=== PATIENT | female | born 1960 | race Hispanic/Latino ===

== ENCOUNTER 2020-03-28 00:35 | Emergency (ER) | payer SELFPAY ==
[2020-03-28 00:58] LABS: APPEARANCE,URINE Cloudy (CLEAR); BILIRUBIN,URINE Negative (NEGATIVE); COLOR,URINE Yellow (YELLOW); GLUCOSE, URINE (UA) Negative (NEGATIVE); KETONES,URINE 40 mg/dL (NEGATIVE); LEUKOCYTE ESTERASE ,URINE Moderate (NEGATIVE); NITRATE,URINE Negative (NEGATIVE); OCCULT BLOOD,URINE Negative (NEGATIVE); PH,URINE 8.5 (5.0-8.0); PROTEIN,URINE Trace mg/dL (NEGATIVE)
[2020-03-28 01:06] LABS: BACTERIA,URINE Rare /HPF (None Seen); RBC,URINE None Seen /HPF (0-1); SQUAMOUS EPITHELIAL CELL,UR Few /HPF (0-2)
[2020-03-28] MEDS ORDERED: LORAZEPAM 2 MG/ML 1 ML VIAL ONE (01:33)
[2020-03-28] MEDS ORDERED: CEFTRIAXONE SODIUM 1 GM ONE (01:48)
[2020-03-28 01:55] LABS: ALBUMIN 4.4 g/dL (3.5-5.0); BILIRUBIN,TOTAL 0.5 mg/dL (0.2-1.0); TOTAL PROTEIN, SERUM 7.9 g/dL (6.0-8.3)
[2020-03-28 02:18] LABS: POTASSIUM 2.9 mmol/L (3.5-5.1)
[2020-03-28] MEDS ORDERED: POTASSIUM CHLORIDE 10MEQ/100ML 100 ML IV ONE (03:34)
[2020-03-28] MEDS ORDERED: POTASSIUM CHLORIDE 20 MEQ ERTAB PO ONE (03:34)
[2020-03-28] MEDS ORDERED: LIDOCAINE HCL-MPF 1% 2ML VIAL ONE (03:37)
[2020-03-28 04:06] LABS: BASOPHILS % (AUTO) 0.5 % (0.0-5.0); EOSINOPHILS % (AUTO) 0.5 % (0.0-8.0); HEMATOCRIT 38.9 % (36-48); LYMPHOCYTES % (AUTO) 33.4 % (21.0-51.0); MEAN CORPUSCULAR HEMOGLOBIN 32.3 pg (27.0-33.0); MEAN CORPUSCULAR HGB CONC 35.5 g/dL (32.0-36.0); MEAN CORPUSCULAR VOLUME 91.1 fL (79-99); MONOCYTES % (AUTO) 9.9 % (3.0-13.0); NEUTROPHILS % (AUTO) 55.3 % (40.0-77.0); PLATELET COUNT (AUTO) 207 K/uL (130-400); RED BLOOD CELL COUNT(AUTO) 4.27 MIL/uL (4.00-5.50); RED CELL DISTRIBUTION WIDTH 12.9 % (11.0-15.5); WHITE BLOOD COUNT (AUTO) 8.4 K/uL (4.8-10.8)
== END 2020-03-28 04:56 | disposition home or self-care (01) ==
LOC: EDH 00:35
DX: E87.6 Hypokalemia (principal); N39.0 Urinary tract infection, site not specified; F41.9 Anxiety disorder, unspecified
CPT/HCPCS: 36415; 80053; 81001; 83735; 85025; 87088; 93005; 96365; 96366; 96368; 96375; 99284; J0696; J2060; J3490

== ENCOUNTER 2021-02-13 14:15 | Emergency (ER) | payer OTHER ==
[~2021-02-13] VITALS: Ht 162.6 cm; Wt 80.3 kg
[2021-02-13 15:00] LABS: BASOPHILS % (AUTO) 0.4 % (0.0-5.0); EOSINOPHILS % (AUTO) 0.6 % (0.0-8.0); HEMATOCRIT 37.5 % (36-48); LYMPHOCYTES % (AUTO) 23.4 % (21.0-51.0); MEAN CORPUSCULAR HEMOGLOBIN 32.3 pg (27.0-33.0); MEAN CORPUSCULAR HGB CONC 34.9 g/dL (32.0-36.0); MEAN CORPUSCULAR VOLUME 92.6 fL (79-99); MONOCYTES % (AUTO) 9.9 % (3.0-13.0); NEUTROPHILS % (AUTO) 65.3 % (40.0-77.0); PLATELET COUNT (AUTO) 222 K/uL (130-400); RED BLOOD CELL COUNT(AUTO) 4.05 MIL/uL (4.00-5.50); RED CELL DISTRIBUTION WIDTH 11.7 % (11.0-15.5); WHITE BLOOD COUNT (AUTO) 6.8 K/uL (4.8-10.8)
[2021-02-13] MEDS ORDERED: LORAZEPAM 1 MG TABLET PO ONE (15:00)
[2021-02-13 15:11] LABS: CREATININE 0.8 mg/dL (0.5-1.5); POTASSIUM 3.1 mmol/L (3.5-5.1)
[2021-02-13 15:16] LABS: ALBUMIN 4.5 g/dL (3.5-5.0); BILIRUBIN,TOTAL 0.5 mg/dL (0.2-1.0)
[2021-02-13 15:21] LABS: APPEARANCE,URINE Cloudy (CLEAR); BILIRUBIN,URINE Negative (NEGATIVE); COLOR,URINE Yellow (YELLOW); GLUCOSE, URINE (UA) Negative (NEGATIVE); KETONES,URINE 40 mg/dL (NEGATIVE); LEUKOCYTE ESTERASE ,URINE Small (NEGATIVE); NITRATE,URINE Negative (NEGATIVE); OCCULT BLOOD,URINE Negative (NEGATIVE); PROTEIN,URINE Trace mg/dL (NEGATIVE)
[2021-02-13 15:43] LABS: RBC,URINE 0-1 /HPF (0-1)
[2021-02-13 15:44] LABS: BACTERIA,URINE Few /HPF (None Seen)
[2021-02-13 15:45] LABS: MUCUS,URINE Moderate LPF (None Seen); SQUAMOUS EPITHELIAL CELL,UR Few /HPF (0-2)
[2021-02-13] MEDS ORDERED: POTASSIUM BICARB/CIT AC 25 MEQ TABLET.EFF PO SCH (16:00)
[2021-02-13] MEDS ORDERED: CEFTRIAXONE 1G VIAL IVP SCH (16:00)
[2021-02-13] MEDS ORDERED: CEFTRIAXONE 1G VIAL IM ONE (16:00)
[2021-02-13] MEDS ORDERED: CEPH500B PO (16:02)
[2021-02-13] MEDS ORDERED: HYDR-3421 PO (16:02)
[2021-02-13 16:15] VITALS: BP 110/40
== END 2021-02-13 16:28 | disposition home or self-care (01) ==
LOC: EEVIPCON 14:15 → EDH 14:15
DX: N39.0 Urinary tract infection, site not specified (principal); F41.0 Panic disorder [episodic paroxysmal anxiety]; G47.00 Insomnia, unspecified; Z79.899 Other long term (current) drug therapy
CPT/HCPCS: 36415; 80053; 81001; 84484; 85025; 87077; 87088; 87186; 96374; 99283; J0696

== ENCOUNTER 2021-03-10 17:01 | Emergency (ER) | payer OTHER ==
[~2021-03-10] VITALS: Ht 154.9 cm; Wt 71.2 kg
[~2021-03-10 17:01] MED LIST: CEPH500B PO; HYDR-3421 PO
[2021-03-10 17:02] VITALS: BP 154/99
[2021-03-10] MEDS ORDERED: LORAZEPAM 1 MG TABLET PO ONE (18:00)
== END 2021-03-10 19:00 | disposition home or self-care (01) ==
LOC: EDH 17:01
DX: F41.0 Panic disorder [episodic paroxysmal anxiety] (principal); Z79.899 Other long term (current) drug therapy